=== PATIENT | male | born 1990 | race Caucasian/White ===

== ENCOUNTER 2020-08-01 11:46 | Emergency (ER) | payer OTHER ==
[~2020-08-01] VITALS: Ht 175.3 cm; Wt 164.3 kg
[2020-08-01] MEDS ORDERED: ACET325C5 PO (11:53)
[2020-08-01 12:47] VITALS: BP 148/87
--- NOTE | 2020-08-01 13:01 | REP ---
INDICATION: swelling / pain. No history of trauma whatsoever COMPARISON: None TECHNIQUE: Four views FINDINGS: The joint spaces are symmetric and relatively well maintained. There is no evidence of acute fracture or destructive osseous lesion. IMPRESSION: Negative hand. <Electronically signed by Franck Granger > 08/01/20 [id number]
--- NOTE | 2020-08-01 13:02 | REP ---
INDICATION: swelling / pain. No history of trauma COMPARISON: None. TECHNIQUE: Four views FINDINGS: No acute fracture or destructive osseous lesion. IMPRESSION: As above <Electronically signed by Franck Granger > 08/01/20 [id number]
--- NOTE | 2020-08-01 13:02 | REP ---
INDICATION: HTN SBP 170. COMPARISON: None. FINDINGS: The superior mediastinal structures are midline. The cardiac silhouette is unremarkable in size, shape, and position. The diaphragmatic surfaces of the lungs are regular, and the costophrenic angles are clear. The pulmonary phillips are clear. The imaged osseous structures are intact. IMPRESSION: There is no acute cardiopulmonary disease. <Electronically signed by Franck Granger > 08/01/20 [id number]
[2020-08-01 13:19] LABS: BASO # 0.1 10^3/uL (0.0-0.2); BASO % 0.6 % (0.0-1.0); EOS # 0.1 10^3/uL (0.0-0.5); EOS % 0.9 % (0.0-3.0); HEMATOCRIT 41.3 % (42.0-52.0); HEMOGLOBIN 13.4 g/dl (13.5-17.5); LYMPH # 1.6 10^3/uL (1.5-5.0); LYMPH % 17.8 % (24.0-44.0); MEAN CORPUSCULAR HEMOGLOBIN 27.5 pg (27.0-33.0); MEAN CORPUSCULAR HGB CONC 32.4 g/dl (32.0-36.5); MEAN CORPUSCULAR VOLUME 84.8 fl (80.0-96.0); MONO # 0.7 10^3/uL (0.0-0.8); MONO % 7.2 % (2.0-8.0); NEUTROPHILS # 6.6 10^3/uL (1.5-8.5); NEUTROPHILS % 73.2 % (36.0-66.0); PLATELET COUNT, AUTOMATED 239 10^3/uL (150-450); RED BLOOD COUNT 4.87 10^6/uL (4.30-6.10); WHITE BLOOD COUNT 9.1 10^3/uL (4.0-10.0)
[2020-08-01] MEDS ORDERED: BOOSTRIX/ADACEL VACCINE (DIPHTH/PERTUSS/ACELL/TETANUS) 0.5ML SYR IM ONE (13:25)
[2020-08-01 13:45] LABS: ALT/SGPT 40 U/L (12-78); BILIRUBIN,DIRECT 0.2 MG/DL (0.0-0.2); BILIRUBIN,TOTAL 0.4 MG/DL (0.2-1.0); BLOOD UREA NITROGEN 17 MG/DL (7-18); CALCIUM LEVEL 9.3 MG/DL (8.5-10.1); CARBON DIOXIDE LEVEL 26 MEQ/L (21-32); CHLORIDE LEVEL 106 MEQ/L (98-107); CK-MB VALUE MASS 3.8 NG/ML (<3.6); CPK CREATINE PHOSPHOKINASE 323 U/L (39-308); CREATININE FOR GFR 0.76 MG/DL (0.70-1.30); GLOMERULAR FILTRATION RATE > 60.0 (>60); GLUCOSE, FASTING 93 MG/DL (70-100); MB/CK RELATIVE INDEX 1.18 (< OR =4); POTASSIUM SERUM 4.1 MEQ/L (3.5-5.1); SODIUM LEVEL 137 MEQ/L (136-145); TOTAL PROTEIN 7.9 GM/DL (6.4-8.2); TROPONIN I < 0.02 NG/ML (< 0.10); URIC ACID 6.8 MG/DL (3.5-7.2)
[2020-08-01] MEDS ORDERED: PRED20TA PO (14:30)
[2020-08-01] MEDS ORDERED: CEPH500C PO (14:32)
[2020-08-01] MEDS ORDERED: KETOROLAC TROMETHAMINE 10 MG TAB PO ONE (14:35)
--- NOTE | 2020-08-02 19:58 | ECGEPIP ---
[facility] - ED Test Date: 2020-08-01 Pat Name: RADHA HILLMAN Department: Room: - Gender: Male Cost Clerk: MARCIA : 1990 Requested By: CLARK Valdovinos PA-C Order Number: [id number] Reading MD: Anita Lima Measurements Intervals [place] Rate: 85 P: 20 WV: 142 QRS: -1 QRSD: 100 T: 20 QT: 378 QTc: 449 Interpretive Statements Normal sinus rhythm No prior Electronically Signed on 08-02-2020 19:57:37 EDT by Anita Lima
== END 2020-08-01 14:45 | disposition home or self-care (01) ==
LOC: M ED 11:46
DX: L03.114 Cellulitis of left upper limb (principal); I10 Essential (primary) hypertension; R74.8 Abnormal levels of other serum enzymes; G47.30 Sleep apnea, unspecified; F17.210 Nicotine dependence, cigarettes, uncomplicated; Z88.1 Allergy status to other antibiotic agents; Z88.2 Allergy status to sulfonamides; Z91.030 Bee allergy status

== ENCOUNTER 2020-10-15 13:09 | Emergency (ER) | payer OTHER ==
[~2020-10-15] VITALS: Ht 177.8 cm; Wt 145.4 kg
[~2020-10-15 13:09] MED LIST: ACET325C5 PO; CEPH500C PO; PRED20TA PO
[2020-10-15 13:10] VITALS: BP 143/86
== END 2020-10-15 23:41 | disposition left against medical advice (07) ==
LOC: M ED 13:09
DX: Z53.29 Procedure and treatment not carried out because of patient's decision for other reasons (principal)